=== PATIENT | female | born 1965 | race Caucasian/White ===

== ENCOUNTER → 2016-06-13 | Outpatient (CLI) | payer OTHER ==
[2014-10-26 13:16] VITALS: BP 105/53
[~2016-06-13] MED LIST: LEVO100T5 PO; MULT1CAP28 PO; NORG1TAB10 PO; OMEG1CAP6 PO
--- NOTE | 2016-06-13 14:20 | KCIC ---
PROCEDURE Pelvic sonogram. HISTORY Irregular frequent periods. TECHNIQUE Trans abdominal and transvaginal sonographic imaging of the pelvis was performed. COMPARISON None. FINDINGS The uterus measures 9.1 x 5.6 x 6.3 cm. The endometrial stripe is 2.3 mm. The right ovary measures 2.1 x 1.4 x 1.5 cm. The left ovary measures 2.4 x 1.9 x 2.7 cm. There is normal blood flow within both ovaries. There is a small amount of nonspecific pelvic free fluid. There is a 1 cm follicle within the right ovary. IMPRESSION 1. Thin endometrial stripe. 2. 1 cm right ovarian follicle. 3. Small amount of nonspecific pelvic free fluid. Electronically signed by: Scarlett Nicholas (Jun 13, 2016 14:18:29)
== END | disposition home or self-care (01) ==
LOC: KCIC US 13:27
PROVIDERS: ATTEND Nurse Practitioner Family
DX: N92.6 Irregular menstruation, unspecified (principal); N92.0 Excessive and frequent menstruation with regular cycle
CPT/HCPCS: 76830; 76856

== ENCOUNTER → 2017-03-06 | Outpatient (CLI) | payer OTHER ==
[2014-10-26 13:16] VITALS: BP 105/53
--- NOTE | 2017-03-07 13:38 | KCIC ---
DATE: 03/06/2017 EXAM: MAMMO JUDI SCREENING BILATERAL HISTORY: Screening COMPARISON: One year earlier This study was interpreted with the benefit of Computerized Aided Detection (CAD ). FINDINGS: Breast Density: HETERO is heterogeneously dense, which could reduce sensitivity of mammography. Breast parenchyma level C. There is not been a significant change in the appearance of the breasts compared to the previous exam IMPRESSION: Benign finding BI-RADS CATEGORY: 2 BENIGN FINDING(S) RECOMMENDED FOLLOW-UP: 12M 12 MONTH FOLLOW-UP PQRS compliance statement: Patient information was entered into a reminder system with a target due date 03/06/2018 for the next mammogram. Mammography is a sensitive method for finding small breast cancers, but it does not detect them all and is not a substitute for careful clinical examination. A negative mammogram does not negate a clinically suspicious finding and should not result in delay in biopsying a clinically suspicious abnormality. "Our facility is accredited by the [employer] Mammography [employer]." ALEAHD
== END | disposition home or self-care (01) ==
LOC: KCIC MAMMO 13:29
PROVIDERS: ATTEND Family Medicine
DX: Z12.31 Encounter for screening mammogram for malignant neoplasm of breast (principal)
CPT/HCPCS: 77063; G0202; 77067

== ENCOUNTER → 2017-11-21 | Outpatient (CLI) | payer OTHER | END | disposition home or self-care (01) | LOC: KCIC US 13:03 | DX: E03.9 Hypothyroidism, unspecified (principal) | CPT/HCPCS: 76536 ==

== ENCOUNTER → 2018-03-16 | Outpatient (CLI) | payer OTHER ==
[2014-10-26 13:16] VITALS: BP 105/53
--- NOTE | 2018-03-16 17:23 | KCIC ---
EXAM: Bilateral digital screening mammogram with tomosynthesis. HISTORY: 53-year-old female presents for screening mammography. TECHNIQUE: Full-field digital craniocaudal and mediolateral oblique 2D and 3D tomosynthesis images of both breasts are obtained for evaluation. Computer aided detection with [employer] software version 9.3 was applied. COMPARISON: 03/06/2017 BREAST PARENCHYMAL DENSITY: Level C - Heterogeneously dense. FINDINGS: There is no new suspicious mass, microcalcification or region of architectural distortion. There are few benign calcifications within both breasts. There are biopsy clips in both breasts. There are left axillary clips. IMPRESSION: BI-RADS Category 2: Benign finding(s). RECOMMENDATION: Annual mammography is recommended. If your mammogram demonstrates that you have dense breast tissue, which could hide abnormalities, and if you have other risk factors for breast cancer that have been identified, you might benefit from supplemental screening tests that may be suggested by your ordering physician. Dense breast tissue, in and of itself, is a relatively common condition. This information is not provided to cause undue concern, but rather to raise your awareness and to promote discussion with your physician regarding the presence of other risk factors, in addition to dense breast tissue. A report of your mammography results will be sent to you and your physician. You should contact your physician if you have any questions or concerns regarding this report. Mammography is a sensitive method for finding small breast cancers, but it does not detect them all and is not a substitute for careful clinical examination. A negative mammogram does not negate a clinically suspicious finding and should not result in delay in biopsying a clinically suspicious abnormality. PQRS compliance statement - Patient information was entered into a reminder system with a target due date for the next mammogram. "Our facility is accredited by the [employer] Mammography [employer]." Electronically signed by: Scarlett Nicholas MD (03/16/2018 5:20 PM) [id number]
== END | disposition home or self-care (01) ==
LOC: KCIC MAMMO 15:34
PROVIDERS: ATTEND Family Medicine
DX: Z12.31 Encounter for screening mammogram for malignant neoplasm of breast (principal)
CPT/HCPCS: 77063; 77067

== ENCOUNTER → 2018-07-29 | Outpatient (CLI) | payer OTHER ==
[2014-10-26 13:16] VITALS: BP 105/53
--- NOTE | 2018-07-29 08:49 | KCIC ---
Bone mineral density study dated 07/29/2018. Indication: Postmenopausal screening. Findings: Lower lumbar spine: BMD (g/cm2): Total L1-L4.......... 1.162. . T-Score: Total L1-L4.................... 1.0. Z-Score: Total L1-L4 ................... 2.1. Left Hip: BMD (g/cm2): Total .......... 0.919. . T-Score: Total .................... -0.2. Z-Score: Total ................... 0.5. World Health Organization criteria for BMD interpretation classify patients as Normal (T-score at or above -1.0), Osteopenic (T-score between -1.0 and -2.5), or Osteoporotic (T-score at or below -2.5). Impression: According to the World Health Organization, bone mineral density values are within the range of normal. Electronically signed by: Mor Vasques MD (07/29/2018 8:45 AM) [id number]
== END | disposition home or self-care (01) ==
LOC: KCIC DEXA 08:01
PROVIDERS: ATTEND Nurse Practitioner Family
DX: Z13.820 Encounter for screening for osteoporosis (principal); Z78.0 Asymptomatic menopausal state
CPT/HCPCS: 77080

== ENCOUNTER → 2019-03-17 | Outpatient (CLI) | payer OTHER ==
[2014-10-26 13:16] VITALS: BP 105/53
--- NOTE | 2019-03-17 18:45 | KCIC ---
Bilateral digital screening mammograms with 3-D tomosynthesis: Reason for examination: Routine screening. Comparison is made to previous studies dated 03/16/2018 and 03/06/2017. Bilateral mammograms in CC and oblique projections were obtained with 2-D imaging and 3-D tomosynthesis imaging on a Siemens Inspiration unit and reviewed on the workstation. Interpretation was made with the benefit of CAD. The skin and nipples show no abnormalities. No abnormal axillary lymph nodes are seen. The breast parenchyma is extremely dense. (Breast density: Category D.) There are surgical clips in the left axilla. There are no new dominant masses, suspicious calcifications or architectural distortion. Bilateral biopsy clips are present. Impression: No evidence of malignancy. Recommend routine screening. Your patient's mammogram demonstrates that she has dense breast tissue (breast density category C or D), which could hide abnormalities, and if she has other risk factors for breast cancer that have been identified, she might benefit from supplemental screening tests that may be suggested by you as her ordering physician. Dense breast tissue, in and of itself, is a relatively common condition. Therefore, this information is not provided to cause undue concern, but rather to raise your awareness and to promote discussion with your patient regarding the presence of other risk factors, in addition to dense breast tissue. Your patient's mammography results will be sent to her. BI-RAD Category 1: Negative. "Our facility is accredited by the [employer] Mammography [employer]." This patient's information has been entered into a reminder system for the patient to be notified with the results of her examination and a target date for the next mammogram. Electronically signed by: Brianne Schroeder MD (03/17/2019 6:42 PM) [id number]
== END | disposition home or self-care (01) ==
LOC: KCIC MAMMO 10:24
PROVIDERS: ATTEND Nurse Practitioner Family
DX: Z12.31 Encounter for screening mammogram for malignant neoplasm of breast (principal)
CPT/HCPCS: 77063; 77067

== ENCOUNTER → 2020-04-10 | Outpatient (CLI) | payer OTHER ==
[2014-10-26 13:16] VITALS: BP 105/53
--- NOTE | 2020-04-10 17:29 | KCIC ---
Bilateral digital screening mammograms and tomosynthesis Reason for examination: Routine screening. History of benign breast biopsy. Family history of breast cancer the patient's sister at age 68. Comparison is made to previous study dated March 17, 2019 and priors Routine CC and MLO digital views obtained. Interpretation was made with the benefit of CAD. The skin and nipples show no abnormalities. No abnormal axillary lymph nodes are seen. The breast parenchyma is extremely dense. (Breast density: Category D.) There are no suspicious masses, suspicious calcifications or architectural distortion. Bilateral breast biopsy clips again demonstrated. Left axillary surgical clips again demonstrated. Impression: Negative mammogram. Recommend routine screening. ?Your patient's mammogram demonstrates that she has dense breast tissue (breast density category C or D), which could hide abnormalities, and if she has other risk factors for breast cancer that have been identified, she might benefit from supplemental screening tests that may be suggested by you as her ordering physician. Dense breast tissue, in and of itself, is a relatively common condition. Therefore, this information is not provided to cause undue concern, but rather to raise your awareness and to promote discussion with your patient regarding the presence of other risk factors, in addition to dense breast tissue. Your patient's mammography results will be sent to her. BI-RAD Category 2: Benign. "Our facility is accredited by the [employer] Mammography [employer]." This patient's information has been entered into a reminder system for the patient to be notified with the results of her examination and a target date for the next mammogram. Electronically signed by: Kameron Mahmood MD (04/10/2020 5:26 PM) [id number]
== END ==
LOC: KCIC MAMMO 13:48
PROVIDERS: ATTEND Nurse Practitioner Family
DX: Z12.31 Encounter for screening mammogram for malignant neoplasm of breast (principal)
CPT/HCPCS: 77063; 77067

== ENCOUNTER → 2020-07-18 | Outpatient (CLI) | payer OTHER ==
[2014-10-26 13:16] VITALS: BP 105/53
--- NOTE | 2020-07-18 18:35 | KCIC ---
PROCEDURE: XR KNEE 3 VIEWS STUDY DATE: 07/18/2020 CLINICAL INDICATION / HISTORY: Reason: MEDIAL KNEE PAIN BILATERALLY, RT WORSE, NO INJURY / Spl. Instr uctions: / History: . TECHNIQUE: AP, lateral, and tunnel views of the right and left knees. COMPARISON: None FINDINGS: The osseous structures are intact. The articular surfaces are smooth. The joint space is maintained. No intra-articular loose bodies. The alignment is within normal limits. The soft tiss ues are unremarkable. No obvious joint effusion. No radio-opaque foreign bodies are identified. IMPRESSION: No fracture or dislocation is identified in either knee. Electronically signed by: Jaspreet Casey MD (07/18/2020 6:33 PM) [id number]
== END ==
LOC: KCIC 13:30
PROVIDERS: ATTEND Nurse Practitioner Family
DX: M25.561 Pain in right knee (principal); M25.562 Pain in left knee
CPT/HCPCS: 73562-50

== ENCOUNTER → 2020-11-23 | Outpatient (CLI) | payer OTHER ==
[2014-10-26 13:16] VITALS: BP 105/53
--- NOTE | 2020-11-23 17:23 | KCIC ---
EXAMINATION: MRI LEFT LOWER EXTREMITY JOINT WITHOUT INDICATIONS: Left hip pain for 8 months, worsening. TECHNIQUE: Multiplanar multisequence MRI of the left hip was obtained without contrast. COMPARISON: None FINDINGS: BONES AND CARTILAGE: No acute fracture. Marrow signal is normal. Mild scattered superficial partial c artilage loss. Avascular necrosis or osseous lesion. Sacroiliac joints are normal. Mild degenerative changes of pubic symphysis and right hip. LABRUM: There is an anterior and anterosuperior labrum. MUSCLES, TENDONS, AND BURSAE: Mild left hamstrings tendinopathy. Gluteal, iliopsoas, rectus femoris, and adductor tendons are intact. Muscles are normal in signal and bulk. No bursitis. OTHER: No joint effusion or synovitis. Mild degenerative changes and ligamentum teres.. Subcutaneous soft tissues normal. IMPRESSION: 1. No acute osseous abnormality. 2. Mild cartilage loss at the left hip. 3. Anterior and anterior superior labral tear. 4. Mild hamstrings tendinopathy. Electronically signed by: Sintia Garcia MD (11/23/2020 5:20 PM) [id number]
== END ==
LOC: KCIC MRI 10:52
PROVIDERS: ATTEND Nurse Practitioner Family
DX: M16.11 Unilateral primary osteoarthritis, right hip (principal); M25.852 Other specified joint disorders, left hip; S43.432A Superior glenoid labrum lesion of left shoulder, initial encounter; X58.XXXA Exposure to other specified factors, initial encounter; Y93.89 Activity, other specified; Y92.89 Other specified places as the place of occurrence of the external cause; Y99.8 Other external cause status
CPT/HCPCS: 73721

== ENCOUNTER → 2021-04-26 | Outpatient (CLI) | payer OTHER ==
[2014-10-26 13:16] VITALS: BP 105/53
--- NOTE | 2021-04-26 12:49 | KCIC ---
Bilateral digital screening mammograms with 3-D tomosynthesis: Reason for examination: Routine screening. Comparison is made to previous studies dated back to 02/26/2016. Bilateral mammograms in CC and oblique projections were obtained with 2-D imaging and 3-D tomosynthes is imaging on a Siemens Inspiration unit and reviewed on the workstation. Interpretation was made wit h the benefit of CAD. The skin and nipples show no abnormalities. No abnormal axillary lymph nodes are seen. Surgical clips are again seen at the left axilla. The breast parenchyma is extremely dense. (Breast density: Catego ry D.) There are no dominant masses, suspicious calcifications or architectural distortion. Biopsy cl ips are seen bilaterally. Impression: No evidence of malignancy. Recommend routine screening. Your patient's mammogram demonstrates that she has dense breast tissue (breast density category C or D), which could hide abnormalities, and if she has other risk factors for breast cancer that have bee n identified, she might benefit from supplemental screening tests that may be suggested by you as her ordering physician. Dense breast tissue, in and of itself, is a relatively common condition. Therefo re, this information is not provided to cause undue concern, but rather to raise your awareness and t o promote discussion with your patient regarding the presence of other risk factors, in addition to d ense breast tissue. Your patient's mammography results will be sent to her. BI-RAD Category 2: Benign. "Our facility is accredited by the [employer] Mammography [employer]." This patient's information has been entered into a reminder system for the patient to be notified wit h the results of her examination and a target date for the next mammogram. Electronically signed by: Brianne Schroeder MD (04/26/2021 12:46 PM) [email or web address]
== END ==
LOC: KCIC MAMMO 11:19
PROVIDERS: ATTEND Nurse Practitioner Family
DX: Z12.31 Encounter for screening mammogram for malignant neoplasm of breast (principal)
CPT/HCPCS: 77063; 77067